=== PATIENT | female | born 1990 | race Caucasian/White ===

== ENCOUNTER 2020-03-13 16:37 | Outpatient (CLI) | payer BC | END 2020-03-13 16:38 | disposition critical access hospital (66) | LOC: EMS 16:37 | PROVIDERS: ATTEND Surgery | DX: M54.9 Dorsalgia, unspecified (principal) | CPT/HCPCS: A0425; A0429 ==

== ENCOUNTER 2020-03-13 17:02 | Emergency (ER) | payer BC ==
[2020-03-13] MEDS ORDERED: ACETAMINOPHEN 325 MG TABLET PO STA (17:06)
--- NOTE | 2020-03-13 17:13 | ED Physician Documentation ---
PD HPI BACK PAIN - Stated complaint Stated Complaint: FALL/BACK PX - Chief complaint Chief Complaint: Trauma Ch/Bk - History obtained from History obtained from: Patient, EMS - Additional information Additional information: She fell from about 8 feet up landing on her back. No head injury or loss of consciousness. Only complaint is low back pain. No neurologic complaints that are new in the lower extremities. She is able to walk and bear weight. Review of Systems Constitutional: denies: Fever, Chills Cardiac: denies: Chest pain / pressure, Palpitations Respiratory: denies: Dyspnea, Cough GI: denies: Abdominal Pain, Nausea, Vomiting PD PAST MEDICAL HISTORY - Present Medications Home Medications: Ambulatory Orders Medication Instructions Recorded Confirmed Oxycodone HCl/Acetaminophen 1 - 2 each PO Q6H PRN #14 tablet 03/13/20 [Percocet 5-325 mg Tablet] - Allergies Allergies/Adverse Reactions: Allergies Allergy/AdvReac Type Severity Reaction Status Date / Time aspirin Allergy Hives Verified 03/13/20 17:31 zolpidem Allergy Hives Verified 03/13/20 17:31 iv contrast Allergy Hives Uncoded 03/13/20 17:31 PD ED PE NORMAL - Vitals Vital signs reviewed: Yes - General General: Alert and oriented X 3, No acute distress - HEENT HEENT: PERRL, EOMI - Neck Neck: Supple, no meningeal sign, No bony TTP - Cardiac Cardiac: RRR, No murmur - Respiratory Respiratory: No respiratory distress, Clear bilaterally - Abdomen Abdomen: Normal bowel sounds, Soft, Non tender - Back Back: No CVA TTP, Other (Mild TTP around l1) - Extremities Extremities: No deformity, No tenderness to palpate, Normal ROM s pain - Neuro Neuro: Alert and oriented X 3, No motor deficit, No sensory deficit, Normal speech Results - Vitals Vitals: Vital Signs - 24 hr 03/13/20 17:02 Temperature 37.1 C Heart Rate 83 Respiratory 18 Rate Blood Pressure 135/81 H O2 Saturation 100 Oxygen O2 Source Room air - Rads (name of study) L spine CT Radiology: EMP read contemporaneously (normal) PD MEDICAL DECISION MAKING - ED course ED course: 30-year-old woman with a fall from a height, isolated back injury and advanced imaging of the area was normal. Departure - Departure Disposition: 01 Home, Self Care Clinical Impression: Fall from height of greater than 3 feet Back contusion Qualifiers: Encounter type: initial encounter Laterality: unspecified laterality Qualified Code(s): S20.229A - Contusion of unspecified back wall of thorax, initial encoun ter Condition: Good Record reviewed to determine appropriate education?: Yes Instructions: ED Low Back Pain Injury Prescriptions: Oxycodone HCl/Acetaminophen [Percocet 5-325 mg Tablet] 1 - 2 each PO Q6H PRN #14 tablet PRN Reason: pain Comments: Call your doctor to arrange a follow-up appointment, make the next available appointment. In the interim, return anytime if worse or if new symptoms develop. Do not drink or drive while taking narcotic pain medication. Note that many narcotic pain relievers also contain Tylenol/acetaminophen. Please ensure that your total dose of acetaminophen from all sources does not exceed 3 g (3000 mg) per day. You may get constipated while on this medication. Take a stool softener such as Colace twice a day while you are on it. Also add an [id number]-vuo-wytfrok laxative such as senna or MiraLAX on any day that you do not have a bowel movement. If you received a narcotic pain medication or sedative while in the emergency department, do not drive for the next 24 hours.
--- NOTE | 2020-03-13 17:31 | CT Report ---
PROCEDURE: LUMBAR SPINE WO INDICATIONS: fall from height, back inj TECHNIQUE: Noncontrast 3 mm thick sections acquired from the T12 level to the sacrum. Sagittal and coronal refo rmats were constructed. For radiation dose reduction, the following was used: automated exposure co ntrol, adjustment of mA and/or kV according to patient size. COMPARISON: None. FINDINGS: Image quality: Excellent. Bones: No acute vertebral body compression fractures. No suspicious lytic or blastic bony lesions. Central spinal caliber is of normal overall caliber. No pars defects. Mild levoconvex scoliotic curvature is seen. T12-L1: Normal in appearance. L1-L2: Normal in appearance. L2-L3: Normal in appearance. L3-L4: Normal in appearance. L4-L5: Normal in appearance. L5-S1: Normal in appearance. Soft tissues: No retroperitoneal masses or hematomas. Visualized aorta is normal in caliber. A lef t-sided sacral stimulator is seen. IMPRESSION: No acute abnormality is seen. Incidental note is made of: Mild levoconvex lumbar sclerotic curvature Left-sided sacral stimulator Reviewed by: Bharat Shen MD on 03/13/2020 4:30 PM AK Approved by: Bharat Shen MD on 03/13/2020 4:30 PM [facility] Station ID: [id number]
[2020-03-13] MEDS ORDERED: oxyCODONE 5 MG TABLET PO STA (17:45)
[2020-03-13 18:20] VITALS: BP 108/63
== END 2020-03-13 18:23 | disposition home or self-care (01) ==
LOC: ED 17:02
DX: S20.229A Contusion of unspecified back wall of thorax, initial encounter (principal); W17.89XA Other fall from one level to another, initial encounter; Y92.71 Barn as the place of occurrence of the external cause
CPT/HCPCS: 72131; 99283; 99284; A9270